=== PATIENT | female | born 1945 | race Caucasian/White ===

== ENCOUNTER 2016-12-09 08:29 | Emergency (ER) | payer MEDICARE ==
[~2016-12-09] VITALS: Ht 162.6 cm; Wt 48.6 kg
[2016-12-09 08:34] VITALS: BP 126/75; PULSE 73; RESP 18; O2SAT 98
[2016-12-09] MEDS ORDERED: 0.9% Sodium Chloride 1,000 ML IV ONE (09:30)
--- NOTE | 2016-12-09 09:31 | ED.REPORT ---
HPI-URI / Cough / Cold Date of Service Dec 09, 2016 ED Provider: Taras White DO The patient is a 71 year old otherwise healthy female who presents to the emergency department complaining of flu-like symptoms that began 3 days ago. She has experienced sore throat, myalgias, cough, headache, nausea, vomiting, inability to tolerate PO, generalized weakness, and malaise. She has been unable to even drink water. She has not had any bowel movements but is still able to pass gas. She states that she has not been to a doctor in over 30 years. Nursing Notes Stated Complaint: FLU Chief Complaint: FLU/Cold Symptoms Nursing Notes Reviewed: Yes Allergies: Uncoded Allergies: SENSITIVE TO MOST MEDS (Adverse Reaction, Intermediate, 12/09/16) Scheduled Oseltamivir Phosphate (Tamiflu) 75 Mg Capsule 75 MG PO BID Scheduled PRN Ondansetron ODT (Zofran ODT) 4 Mg Tablet 4 MG PO Q4H PRN PRN For Nausea General Time Seen by MD: 09:27 Chief Complaint Other (flu-like symptoms) Hx Obtained From: Patient Arrived By: Walk-in Onset Occurred: 3 days ago Symptom Duration: Since onset Location: : Diffuse myalgia Severity: Current: Moderate Severity: Maximum: Moderate Recent Healthcare: No recent hospitalization Similar Sx Previous: No Past Medical History Past Medical History Denies Past Surgical History Denies Family History Noncontributory Smoking History Unknown if Ever Smoker Social History Alcohol Use: Denies alcohol use Drug Use: Denies drug use Other Social History: Good social support, Local resident Ambulatory Status Independent Review of Systems Constitutional: Reports: Malaise, Weakness - generalized Ears / Nose / Throat: Reports: Sore throat Respiratory: Reports: Non-productive cough GI: Reports: Anorexia, Nausea, Vomiting Neurologic: Reports: Headache Complete sys rev & neg: except as marked. Musculoskeletal: Reports: Myalgia Physical Exam Initial Vital Signs Vital Signs (First) Date Time Temp Pulse Resp B/P Pulse Ox O2 Delivery O2 Flow Rate FiO2 12/09/16 08:34 36.4 73 18 126/75 98 Room Air Initial VS: Reviewed Head / Eyes: Atraumatic, Normocephalic, PERRL Neck: Supple, Non-tender, Full range of motion Cardiovascular: Regular rate & rhythm, Heart sounds normal, Intact distal pulses Abdomen / GI: Soft, Non-tender, No guarding, No rebound, No distention Lymphatic: No lymphadenopathy Extremities: Vascular intact, Neuro intact, No swelling, No tenderness Skin: Warm, Dry, No cyanosis Neurologic: Alert, Oriented, Nonfocal Psychiatric: Mood/affect normal, Behavior normal, Normal thought content General/Constitutional: Awake, Alert, Well appearing ENT: Atraumatic, Airway patent, Mucous membranes moist, Pharynx NL Respiratory / Chest: Atraumatic, Breath sounds NL, Breath sounds = bilat, No respiratory distress, No rales, No rhonchi, No wheezing, No retractions, No stridor Interpretation & Diagnostics Interpretation & Diagnostics: Positive maximilian influenza A Lab Results Interpretation Result Diagram: 12/09/16 0950 12/09/16 0950 Test 12/09/16 09:50 12/09/16 11:10 White Blood Count 4.4th/mm3 (3.8-10.1) Red Blood Count 4.06mil/mm3 (3.90-5.20) Hemoglobin 12.8g/dL (12.0-15.6) Hematocrit 38.2% (35.0-46.0) Mean Corpuscular Volume 94.1fL (81-100) Mean Corpuscular Hemoglobin 31.5pg (27.0-35.0) Mean Corpuscular Hemoglobin Concent 33.5% (32.0-37.0) Red Cell Distribution Width 13.5% (12.3-15.4) Platelet Count 216bil/L (150-400) Neutrophils (%) (Auto) 66.3% (40-74) Lymphocytes (%) (Auto) 13.7% (14-46) Monocytes (%) (Auto) 19.1% (4-12) Eosinophils (%) (Auto) 0% (0-5) Basophils (%) (Auto) 0.2% (0-3) Sodium Level 127mEq/L (134-144) Potassium Level 4.5mEq/L (3.5-5.2) Chloride Level 89mEq/L (97-108) Carbon Dioxide Level 22mmol/L (18-29) Blood Urea Nitrogen 13mg/dL (8-27) Creatinine 0.62mg/dL (0.57-1.00) Estimat Glomerular Filtration Rate 136mL/min (>59) Glucose Level 102mg/dL (60-99) Calcium Level 8.8mg/dL (8.5-10.1) Total Bilirubin 0.3mg/dL (0.0-1.2) Aspartate Amino Transf (AST/SGOT) 22U/L (0-50) Alanine Aminotransferase (ALT/SGPT) 12U/L (0-32) Alkaline Phosphatase 63U/L (25-165) Total Protein 7.2g/dL (6.4-8.4) Albumin 3.9g/dL (3.4-5.0) Hold Garcia Top Tube Received (Received) Hold Urine Received (Received) Re-Eval/Medical Decision Med Decision/Clinical Course Med Decision/Clinical Course: Patient has influenza A is otherwise stable, and after IV fluids and antiemetics is able to tolerate both oral solids and liquids. She does have moderate hyponatremia, this is repleted with IV normal saline 1500 mL's. It seems that the patient is feeling well and she wishes to go home. She declines any further laboratory evaluation. She will be started on Tamiflu and given Zofran for home use given the severity of her dehydration. She is agreeable to close follow-up and will return to the ER as needed if worse. Source of Hx: Old records Re-Evaluation/Progress #1: Time of Eval: 09:38 Re-Evaluation/Progress Note: Discussed plan for IV fluids and medications. Re-Evaluation/Progress #2: Time of Eval: 10:40 Re-Evaluation/Progress Note: Rechecked the patient. Discussed lab results, diagnosis, and plan for PO trial then discharged. All questions were addressed. Re-Evaluation/Progress #3: Time of Eval: 11:30 Re-Evaluation/Progress Note: Rechecked the patient. Discussed plan for additional labs. Re-Evaluation/Progress #4: Time of Eval: 12:28 Re-Evaluation/Progress Note: Rechecked the patient. Discussed low sodium. Offered repeat chemistry to make sure it is going up. She has tolerated both oral solids and liquids. She is feeling better and wants to go home. She does not want any additional tests at this time. She agrees to followup with a primary care provider or return if her symptoms are worse. Counseled Regarding: Diagnosis, Lab results, Need for follow-up, When/why to return to ED Discharge & Departure Impression: Primary Impression: Influenza due to influenza A virus Additional Impression: Hyponatremia Disposition: Home Discharge Condition All VS Reviewed: Yes Condition: Stable Additional Instructions: Thank you for entrusting us with your care today. You tested positive for influenza A. Your lab results also showed that your sodium level is low. Make sure to stay hydrated and drink plenty of fluids, especially things like chicken soup with added sodium. Use Zofran as needed for nausea and vomiting. You can take Tylenol as needed for your discomfort. Use Tamiflu to help minimize the symptoms of influenza. We discussed the importance of followup and you have agreed to followup with a primary care provider. We have given you a referral to the residency clinic. Call today to make and appointment within the next few days or so. Please return to the emergency department for any new or concerning symptoms. Referrals: [facility] Res[facility] Scribe Attestation Portions of this note were transcribed by Rhonda Wright. I, Dr. White personally performed the history, physical exam and medical decision-making; I reviewed and confirmed the accuracy of the information in the transcribed note. Signed by: Mahsa Che, 12/09/2016 and [id number]. copies to: [facility] Taras White DO Dec 09, 2016 09:31 Rhonda Wright Dec 09, 2016 09:39
[2016-12-09] MEDS ORDERED: Ondansetron 2 mg/mL 2 mL Inj IVPUSH PRN (09:40)
[2016-12-09 10:03] LABS: BASOPHILS % (AUTO) 0.2 % (0-3); EOSINOPHILS % (AUTO) 0 % (0-5); MONOCYTES % (AUTO) 19.1 % (4-12); Mean Corpuscular Hemoglobin 31.5 pg (27.0-35.0); Mean Corpuscular Volume 94.1 fL (81-100); NEUTROPHILS % (AUTO) 66.3 % (40-74); Platelet Count 216 bil/L (150-400)
[2016-12-09] MEDS ORDERED: 0.9% Sodium Chloride 500 ML IV ONE (10:45)
[2016-12-09 11:57] VITALS: BP 126/48; PULSE 72; RESP 15; O2SAT 98
[2016-12-09] MEDS ORDERED: ONDA4TAB9 PO (12:41)
[2016-12-09] MEDS ORDERED: TAM75UDCAP PO (12:41)
== END 2016-12-09 12:50 | disposition home or self-care (01) ==
LOC: SED 08:29
DX: J10.89 Influenza due to other identified influenza virus with other manifestations (principal); E87.1 Hypo-osmolality and hyponatremia; J02.9 Acute pharyngitis, unspecified; R05 Cough; R11.2 Nausea with vomiting, unspecified; R51 Headache; R53.81 Other malaise; M79.1 Myalgia
CPT/HCPCS: 36415; 80053; 85025; 87804; 96361; 96374; 99284; J2405; J7030; J7040